=== PATIENT | female | born 2000 | race Caucasian/White ===

== ENCOUNTER 2019-12-15 18:32 | Emergency (ER) | payer BC, SELFPAY ==
[2019-12-15 18:41] VITALS: BMI 44.6
[2019-12-15 18:45] VITALS: BP 148/101; PULSE 86; RESP 16; TEMP 36.9; O2SAT 98
[2019-12-15 18:49] VITALS: BP 148/101; RESP 17
--- NOTE | 2019-12-15 18:50 | W.ED.ALLEREA ---
HPI - Allergic Reaction General: Chief complaint: Allergic Reaction Stated complaint: poss allergic reaction Time Seen by Provider: 12/15/19 18:40 History of Present Illness: HPI narrative: Patient is a 18-year-old female who comes to the ED with allergic reaction. Patient has an pruritic rash throughout her daughter body. Symptoms started about an hour before she arrived to the ED. Patient states she was just starting for her school when rash started. It started first with her head and she felt kind of a hot tingling sensation and then it spread all the way down her body. Says her throat was feeling itchy and swollen. Denies any trouble breathing. She took two 25mg Benadryl tablets before coming to the ED. She feels the Benadryl has helped improve some of the symptoms. Patient says the last thing she ate was around lunchtime and it was nothing unusual in food she had eaten before. Feel some stress currently with school and states she started getting the rash and got more more anxious and stressed about it. Denies ever having any rash like this before. Denies any contact allergies. Patient is allergic to sulfa drugs but is not currently on any. She did recently up her dose of Lexapro. Associated symptoms: Deny abdominal pain, nausea or vomiting Review of Systems Const: Denies: fever, chills or fatigue Eyes: Denies: change in vision or eye discomfort ENMT: Denies: throat pain, painful swallowing, nasal discharge or nasal congestion Card: Denies: chest pain, palpitations, edema, swelling of feet/ankles, shortness of breath on exertion or shortness of breath when lying down Resp: Denies: shortness of breath, productive cough or non-productive cough GI: Denies: abdominal pain, nausea, vomiting, diarrhea, constipation or blood in stool : Denies: flank pain, painful urination or blood in urine Musc: Denies: neck pain, back pain or extremity swelling Skin/Breast: Reports: rash; Denies: new lesion Neuro: Denies: headache, numbness in extremities or weakness in extremities PFS ED PFSH: Social History Smoking and tobacco status: never smoked Female Reproductive History: Date of last menstrual period: 11/18/19 Physical Exam Narrative: EXAM NARRATIVE: Patient is sitting comfortably on the exam bed when I enter the room. She is showing no signs of any acute respiratory distress. The rash is red and visible on her legs and arms. Rash very much looks like hives. Const: COMMON NORMALS: oriented x3 HENMT: COMMON NORMALS: normocephalic HEAD & SCALP: normocephalic MOUTH: oral and palatal mucosa normal THROAT: posterior oropharynx normal and uvula midline Neck/C-Spine: COMMON NORMALS: supple GENERAL: Yes normal visual inspection Resp: COMMON NORMALS: normal respiratory effort, no retractions, no use of accessory muscles and clear to auscultation bilaterally AUSCULTATION: clear to auscultation bilaterally Cardio: COMMON NORMALS: regular rate, regular rhythm, S1 normal heart sound, S2 normal heart sound, no gallops, no clicks, no murmurs and peripheral pulses 2+ throughout RATE: regular rate RHYTHM: regular rhythm HEART SOUNDS: S1 normal and S2 normal PERIPHERAL PULSES: pulses 2+ throughout GI: COMMON NORMALS: normal to inspection, nondistended, normoactive bowel sounds, soft to palpation, non-tender and no masses PALPATION: Yes soft : COMMON NORMALS: Yes no CVA tenderness BLADDER/KIDNEY EXAM: Yes no CVA tenderness Back/Pelvis: COMMON NORMALS: no CVA tenderness Extremity: COMMON NORMALS: normal to inspection Neuro: COMMON NORMALS: oriented x3 and moves all extremities Skin: RASHES: rashes noted pruritc rash thoughout body Rash type: Yes maculopapular Rash location: xtrensive-on arms and legs bilaterally. no rash on abdomen or back. Rash color: Yes red Rash surface: Yes dry and Yes raised Rash border: Yes indistinct Rash tenderness: Yes nontender Rash findings consistent with: Yes hives Course Reevaluation(s): Reevaluation #1: IV fluids, ranitidine IV and Solu-Medrol IV have been administered. Patient states that her itchiness and the rash on her legs is improving now. Patient still feels like her throat is a little tight and she has a numbness sensation of both hands. Time: 19:39 Reevaluation #2: I checked on patient after she received her epinephrine injection. Patient says her symptoms are improving and most of the rash on her leg is gone. She says after getting the epi injection her throat is improving and starting to feel better. Time: 20:00 Reevaluation #3: I checked on the patient again and all of her symptoms had completely resolved. She had no more throat tightness or rash on upper and lower extremities. Patient was ready to go home. Time: 21:54 Vital Signs: Vital signs: Vital Signs Temperature 98.4 F 12/15/19 18:45 Pulse Rate 89 12/15/19 22:15 Respiratory Rate 16 12/15/19 22:15 Blood Pressure 156/93 12/15/19 22:15 Pulse Oximetry 97 12/15/19 22:15 MDM - Allergic Reaction MDM Narrative: Medical decision making narrative: Patient is a 19-year-old female comes into the ED with an allergic reaction. Patient was having hives on upper and lower extremities bilaterally. Patient also complaining of tingling in both hands and tightness in her throat. Patient had already taken to 25 mg tablets of Benadryl before she came to the ED. Patient said some of her rash was improving when she got to the ED. Throat tightness was unchanged after Benadryl and IV fluids, Solu-Medrol and IV ranitidine. Patient was then given epinephrine IM. Throat tightness improved and went away and hand numbness and tingling improved as well. Patient's rash completely went away while here in the ED. Patient was then watched here for 3-1/2 hours and she had no other symptoms or rebound reactions while here in the ED. Patient was then discharged and told to come back to the ED if she is having any worsening symptoms or or trouble breathing. Patient understood and agreed with plan. Discharge Plan Discharge Patient Disposition: Home, Self-Care Clinical Impression: Allergic reaction Qualifiers: Encounter type: initial encounter Qualified Code(s): T78.40XA - Allergy, unspecified, initial encounter Condition: Stable Prescriptions: No Action Lexapro 20 mg Tablet 20 mg PO DAILY RF: 0 Discharge Orders: Discharge Order (Routine); Ordered 12/15/19 Ordered By: Sameer Lopes Discharge Diet: Regular Discharge Activity: Resume usual activity Patient Instructions: Allergic Reaction, Urticaria (ED) Activity Restrictions/Additional Instructions: Follow-up with your PCP in 3 days for reevaluation. Return to the ED if you have allergic reaction symptoms again or trouble breathing. You could take another dose of Benadryl 1 tab (25mg) tonight when you get home. Discharge Date/Time: 12/15/19 22:16 Coding Level of Care Code ED Psychiatric Specialist for Chg Fwd Exam Comprehensive
[2019-12-15] MEDS: sodium chloride 0.9% 1,000 ML 999 ML IV (19:20)
[2019-12-15] MEDS: EPINEPHrine 1 mg/mL INJ 0.5 MG IM (19:52)
[2019-12-15 22:15] VITALS: BP 156/93; PULSE 89; RESP 16; O2SAT 97
== END 2019-12-15 22:16 | disposition home or self-care (01) ==
PROVIDERS: Emergency Provider Physician Assistant
DX: T78.40XA Allergy, unspecified, initial encounter (principal); L50.0 Allergic urticaria; X58.XXXA Exposure to other specified factors, initial encounter
CPT/HCPCS: 12345; 96360; 96361; 96372; 96374; 96375; 99282; 99283; J0171; J2780; J2930; J7030

== ENCOUNTER 2023-01-25 19:10 | Emergency (ER) | payer OTHER, SELFPAY ==
[2023-01-25 20:07] VITALS: BMI 41.8
[2023-01-25 20:10] VITALS: BP 158/99; PULSE 86; RESP 18; TEMP 36.9; O2SAT 100
[2023-01-25 20:14] LABS: Basophils % 0.4 %; Eosinophils % 0.5 %; Hematocrit 39.4 % (37.0-47.0); Hemoglobin 12.4 g/dL (11.5-15.3); Lymphocytes # 2.2 10^3/uL (0.8-4.8); Lymphocytes % 25.8 %; Mean Corpuscular HGB Conc 31.5 g/dL (30.0-36.0); Mean Corpuscular Volume 85.8 fl (81-99); Mean Platelet Volume 9.6 fL (7.4-10.4); Monocytes # 0.5 10^3/uL (0.2-0.9); Monocytes % 6.3 %; Neutrophils # 5.62 10^3/uL (1.8-7.7); Neutrophils % 66.6 %; Nucleated Red Blood Cells % 0 %; Platelet Count 319 10^3/cmm (130-400); Red Blood Count 4.59 10^6/uL (4.1-5.3); Red Cell Distribution Width 13.4 % (12.1-15.1); White Blood Count 8.4 10^3/uL (4.0-10.0)
[2023-01-25 20:37] LABS: Add Urine Microscopic? NO; Charge for UA Resulting for Rev
[2023-01-25 20:38] LABS: Alanine Aminotransferase 26 U/L (0-33); Albumin Level 4.3 g/dL (3.5-5.2); Alkaline Phosphatase 82 U/L (35-105); Anion Gap 15.9 (5-19); Aspartate Amino Transferase 25 U/L (0-32); Blood Urea Nitrogen 12 mg/dL (6-20); Calcium 8.9 mg/dL (8.5-10.5); Carbon Dioxide 25 mmol/L (22-29); Chloride 102 mmol/L (98-107); Globulin 3.1 g/dL (1.3-4.6); Glomerular Filtration Rate 103.7 mL/min (90-130); Glucose 90 mg/dL (65-115); Lipase 20 U/L (13-60); Osmolality Calculated 287 mOsm/kg (285-295); Potassium 3.9 mmol/L (3.5-5.1); Sodium 139 mmol/L (136-145); Total Bilirubin 0.2 mg/dL (0.15-1.2); Total Protein 7.4 g/dL (6.6-8.7)
[2023-01-25 21:04] LABS: HCG Qualitative Urine. Negative (Negative)
[2023-01-25 21:05] LABS: Bilirubin Urine 1+ (Negative); Blood Urine Neg (Negative); Glucose Urine UA Norm (Normal); Ketones Urine Negative (Negative); Leukocyte Esterase Urine Negative (Negative); Nitrate Urine Negative (Negative); Protein Urine Neg (Negative); Specific Gravity, Urine 1.025 (1.005-1.030); Urine Appearance Clear (CLEAR); Urine Color Yellow (Yellow); Urobilinogen Urine Norm (Negative); pH Urine 5 (5-7)
--- NOTE | 2023-01-25 23:35 | CTR_ITS ---
PROCEDURE INFORMATION: Exam: CT Abdomen And Pelvis With Contrast Exam date and time: 01/26/2023 12:06 AM Age: 22 years old Clinical indication: Nausea and vomiting; Abdominal pain; Localized; Right; Patient HX: RT sided abd pain with n/v. ; Additional info: Abd pain, n/v TECHNIQUE: Imaging protocol: Computed tomography of the abdomen and pelvis with contrast. Radiation optimization: All CT scans at this facility use at least one of these dose optimization techniques: automated exposure control; mA and/or kV adjustment per patient size (includes targeted exams where dose is matched to clinical indication); or iterative reconstruction. Contrast material: OMNI 350; Contrast volume: 100 ml; Contrast route: INTRAVENOUS (IV); REPORTING DATA: Count of CT and Cardiac NM exams in prior 12 months: This patient has received 0 known CTs and 0 known cardiac nuclear medicine studies in the 12 months prior to the current study. COMPARISON: No relevant prior studies available. RADIATION DOSE METRICS: Total DLP (mGy-cm): 1395.61 FINDINGS: Liver: Normal. No mass. Gallbladder and bile ducts: Normal. No calcified stones. No ductal dilation. Pancreas: Normal. No ductal dilation. Spleen: Normal. No splenomegaly. Adrenal glands: Normal. No mass. Kidneys and ureters: Normal. No hydronephrosis. Stomach and bowel: Unremarkable. No obstruction. No mucosal thickening. Appendix: No evidence of appendicitis. Intraperitoneal space: Unremarkable. No free air. No significant fluid collection. Vasculature: Unremarkable. No abdominal aortic aneurysm. Lymph nodes: Unremarkable. No enlarged lymph nodes. Urinary bladder: Unremarkable as visualized. Reproductive: Unremarkable as visualized. Bones/joints: Unremarkable. No acute fracture. Soft tissues: Unremarkable. CT/CT abdomen pelvis w con* [id number] IMPRESSION: No acute findings.
--- NOTE | 2023-01-25 23:47 | ED_ITS ---
HPI - Abdominal Pain General: Chief Complaint: Abdominal Pain Stated Complaint: lower abd pain Time Seen by Provider: 01/25/23 22:30 History of Present Illness: 22-year-old female comes in today with abdominal cramping and diarrhea since Tuesday. Patient appears nontoxic. Patient reports that every time she eats she has diarrhea stool. Patient reports the consistency is water. Patient has some mild nausea but no vomiting. Patient reports no fever or blood in the stool. Associated Symptoms: Reports diarrhea; Denies constipation, fever(s), nausea and vomiting Related Data: Date of Last Menstrual Period: 01/10/23 Review of Systems General: Reports: 10 or more systems reviewed and unremarkable except in HPI a nd below Const: Denies: fever(s) Card: Denies: chest pain Resp: Denies: dyspnea GI: Reports: diarrhea; Denies: nausea, vomiting or constipation : Denies: difficulty voiding Musc: Denies: neck pain or back pain Skin/Breast: Denies: rash Neuro: Denies: numbness in extremities PFSH ED PFSH: Social History Smoking and tobacco status: never smoked Female Reproductive History: Date of last menstrual period: 01/10/23 Physical Exam Const: COMMON NORMALS: alert HENMT: COMMON NORMALS: normocephalic HEAD & SCALP: normocephalic Neck/C-Spine: COMMON NORMALS: full ROM Resp: COMMON NORMALS: normal respiratory effort and clear to auscultation bilaterally AUSCULTATION: clear to auscultation bilaterally Cardio: COMMON NORMALS: regular rate, regular rhythm, S1 normal heart sound present and S2 normal heart sound present RATE: regular rate RHYTHM: regular rhythm HEART SOUNDS: S1 normal heart sound present and S2 normal heart sound present GI: COMMON NORMALS: Soft to palpation PALPATION: Yes Soft to palpation and Yes Tenderness to palpation present (GI) (Mild generalized) : COMMON NORMALS: Yes no CVA tenderness BLADDER/KIDNEY EXAM: Yes no CVA tenderness Back/Pelvis: COMMON NORMALS: no CVA tenderness Extremity: COMMON NORMALS: normal to inspection Neuro: SENSORIUM/ORIENTATION: Yes alert Skin: COMMON NORMALS: turgor normal GENERAL SKIN EXAM: turgor normal Course Vital Signs: Vital signs: Vital Signs Temperature 98.4 F 05/16/23 20:10 Pulse Rate 92 01/25/23 23:49 Respiratory Rate 16 01/25/23 23:49 Blood Pressure 128/67 01/26/23 01:02 Pulse Oximetry 99 01/26/23 01:02 Oxygen Delivery Me thod Room Air 01/25/23 20:10 MDM - Abdominal Pain Medical Decision Making [id number] female comes in today for complaints of abdominal discomfort and diarrhea stools. On exam abdomen is soft with some generalized tenderness. No rebound tenderness or guarding is noted. Bowel sounds are normal active. Skin is warm and dry. Vital signs are normal. Differential diagnosis includes but not limited to enteritis versus colitis, appendicitis, gallbladder disease, dehydration. Laboratory values were unremarkable. No abnormalities were noted in liver enzymes or bilirubin. Urinalysis was clean. CBC showed no leukocytosis. CT noted no significant abnormalities. Probably has diarrhea secondary to a viral infection. Due to concern for bacterial infection patient we will cover with Cipro 500 twice a day for 5 days. Patient was recommended use of [id number] Imodium to help with diarrhea. Patient was recommended to return to the ER for worsening symptoms such as uncontrolled high fever and blood in vomit or stool. Lab Data 01/25/23 19:59 01/25/23 19:59 Labs/Radiology: Radiology Impressions Abdomen/Pelvis CT 01/25/23 23:35 IMPRESSION: No acute findings. Laboratory Results WBC 8.4 10^3/uL (4.0-10.0) 01/25/23 19:59 RBC 4.59 10^6/uL (4.1-5.3) 01/25/23 19:59 Hgb 12.4 g/dL (11.5-15.3) 01/25/23 19:59 Hct 39.4 % (37.0-47.0) 01/25/23 19:59 MCV 85.8 fl (81-99) 01/25/23 19:59 MCH 27.0 pg (28.0-34.0) L 01/25/23 19:59 MCHC 31.5 g/dL (30.0-36.0) 01/25/23 19:59 RDW 13.4 % (12.1-15.1) 01/25/23 19:59 Plt Count 319 10^3/cmm (130-400) 01/25/23 19:59 MPV 9.6 fL (7.4-10.4) 01/25/23 19:59 Neut % (Auto) 66.6 % 01/25/23 19:59 Lymph % (Auto) 25.8 % 01/25/23 19:59 Josephine % (Auto) 6.3 % 01/25/23 19:59 Eos % (Auto) 0.5 % 01/25/23 19:59 Baso % (Auto) 0.4 % 01/25/23 19:59 Neut # (Auto) 5.62 10^3/uL (1.8-7.7) 01/25/23 19:59 Lymph # (Auto) 2.2 10^3/uL (0.8-4.8) 01/25/23 19:59 Josephine # (Auto) 0.5 10^3/uL (0.2-0.9) 01/25/23 19:59 Eos # (Auto) 0.0 10^3/uL (0.0-0.8) 01/25/23 19:59 Baso # (Auto) 0.0 10^3/uL (0.0-0.1) 01/25/23 19:59 Nucleated RBC % (auto) 0 % 01/25/23 19:59 Nucleated RBCs # 0.0 /100WBC 01/25/23 19:59 Sodium 139 mmol/L (136-145) 01/25/23 19:59 Potassium 3.9 mmol/L (3.5-5.1) 01/25/23 19:59 Chloride 102 mmol/L (98-107) 01/25/23 19:59 Carbon Dioxide 25 mmol/L (22-29) 01/25/23 19:59 Anion Gap 15.9 (5-19) 01/25/23 19:59 BUN 12 mg/dL (6-20) 01/25/23 19:59 Creatinine 0.7 mg/dL (0.5-0.9) 01/25/23 19:59 GFR Calculation 103.7 mL/min (90-130) 01/25/23 19:59 Glucose 90 mg/dL (65-115) 01/25/23 19:59 Calculated Osmolality 287 mOsm/kg (285-295) 01/25/23 19:59 Calcium 8.9 mg/dL (8.5-10.5) 01/25/23 19:59 Total Bilirubin 0.2 mg/dL (0.15-1.2) 01/25/23 19:59 AST 25 U/L (0-32) 01/25/23 19:59 ALT 26 U/L (0-33) 01/25/23 19:59 Alkaline Phosphatase 82 U/L (35-105) 01/25/23 19:59 C-Reactive Protein 13.5 mg/L (0.0-4.9) H 01/25/23 19:59 Total Protein 7.4 g/dL (6.6-8.7) 01/25/23 19:59 Albumin 4.3 g/dL (3.5-5.2) 01/25/23 19:59 Globulin 3.1 g/dL (1.3-4.6) 01/25/23 19:59 Lipase 20 U/L (13-60) 01/25/23 19:59 HCG, Qual Negative (Negative) 01/25/23 20:15 Urine Color Yellow (Yellow) 01/25/23 20:15 Urine Appearance Clear (CLEAR) 01/25/23 20:15 Urine pH 5 (5-7) 01/25/23 20:15 Ur Specific [place] 1.025 (1.005-1.030) 01/25/23 20:15 Urine Protein Neg (Negative) 01/25/23 20:15 Urine Glucose (UA) Norm (Normal) 01/25/23 20:15 Urine Ketones Negative (Negative) 01/25/23 20:15 Urine Blood Neg (Negative) 01/25/23 20:15 Urine Nitrate Negative (Negative) 01/25/23 20:15 Urine Bilirubin 1+ (Negative) H 01/25/23 20:15 Urine Urobilinogen Norm mg/dL (Negative) 01/25/23 20:15 Ur Leukocyte Esterase Negative (Negative) 01/25/23 20:15 Discharge Plan Discharge Patient Disposition: Home Clinical Impression: Diarrhea of presumed infectious origin Condition: Stable Prescriptions: New Cipro 500 mg tablet 500 mg PO BID Qty: 10 0RF No Action Lexapro 20 mg Tablet 20 mg PO DAILY Discharge Orders: Discharge ED (Routine); Ordered 01/26/23 Ordered By: Tremayne Nava Discharge Diet: Usual diet Discharge Activity: Increase activity as tolerated Patient Instructions: Diarrhea - Adult Activity Restrictions/Additional Instructions: Drink plenty of fluids. Drinking electrolyte solution 8 ounces 3 times a day to help maintain electrolytes and hydration. Take antibiotic as directed. Use [id number] Imodium for abdominal cramping, pain and diarrhea. Follow-up with primary care in 3 to 4 days for recheck. Return to ED for new concerns. Coding Level of Care Code ED Director Information Security for Yolie Payne
[2023-01-25 23:49] VITALS: BP 162/96; PULSE 92; RESP 16; O2SAT 97
[2023-01-26] MEDS: sodium chloride 0.9% 1,000 ML 999 ML IV
[2023-01-26] MEDS: iohexol 350 mg/mL 500 mL Btl (per mL) IV (00:11)
[2023-01-26 00:58] LABS: C Reactive Protein 13.5 mg/L (0.0-4.9)
[2023-01-26 01:02] VITALS: BP 128/67; O2SAT 99
[2023-01-26 01:30] VITALS: BP 133/70
[2023-01-26 02:00] VITALS: BP 152/100; PULSE 81; RESP 16; O2SAT 97
[2023-01-26] MEDS: ciprofloxacin 500 mg Tablet PO (02:03)
--- NOTE | 2023-02-09 13:19 | DCPLANNER ---
TCM called patient due to no primary care physician - patient declines at this time.
== END 2023-01-26 02:07 | disposition home or self-care (01) ==
PROVIDERS: Emergency Medicine; Emergency Provider Nurse Practitioner Family
DX: R19.7 Diarrhea, unspecified (principal)
CPT/HCPCS: 36415; 74177; 80053; 81003; 81025; 83690; 85025; 86140; 96360; 99285; J7030; Q9967

== ENCOUNTER → 2025-06-20 11:21 | Outpatient (BNVA) | payer OTHER, SELFPAY | PROVIDERS: Visit Provider Registered Nurse Neonatal Intensive Care | DX: N93.9 Abnormal uterine and vaginal bleeding, unspecified (principal) | CPT/HCPCS: 81025; 85018 ==